=== PATIENT | male | born 1995 | race African-American/Black ===

== ENCOUNTER 2018-08-24 13:20 | Emergency (ER) | payer OTHER ==
[~2018-08-24] VITALS: Ht 172.7 cm; Wt 63.5 kg
[2018-08-24 13:23] VITALS: BP_SYST 125
[2018-08-24 13:40] VITALS: BP_SYST 125
== END 2018-08-24 13:40 ==
LOC: SED 13:20
DX: Z02.89 Encounter for other administrative examinations (principal); R10.9 Unspecified abdominal pain; R03.0 Elevated blood-pressure reading, without diagnosis of hypertension
CPT/HCPCS: 99283